=== PATIENT | female | born 1970 | race Caucasian/White ===

== ENCOUNTER → 2025-02-18 11:13 | Outpatient (BNVA) | payer MEDICARE, SELFPAY | PROVIDERS: Family Provider Nurse Practitioner; PCP Nurse Practitioner Family; Visit Provider Nurse Practitioner Family | DX: E11.9 Type 2 diabetes mellitus without complications (principal); I10 Essential (primary) hypertension; E55.9 Vitamin D deficiency, unspecified | CPT/HCPCS: 80053; 80061; 81000; 81003; 82043; 82306; 82607; 83036; 84443; 85025; 87086 ==

== ENCOUNTER → 2025-05-23 09:26 | Outpatient (BNVA) | payer MEDICARE, SELFPAY | PROVIDERS: Family Provider Nurse Practitioner; PCP Nurse Practitioner Family; Visit Provider Nurse Practitioner Family | DX: E11.9 Type 2 diabetes mellitus without complications (principal); N92.4 Excessive bleeding in the premenopausal period; I10 Essential (primary) hypertension; E55.9 Vitamin D deficiency, unspecified | CPT/HCPCS: 80053; 80061; 81025; 82306; 83036; 84443; 84702; 84703; 85025 ==

== ENCOUNTER → 2025-07-05 11:12 | Outpatient (BNVA) | payer MEDICARE, SELFPAY | PROVIDERS: PCP Nurse Practitioner Family; Visit Provider Nurse Practitioner Family | DX: M25.519 Pain in unspecified shoulder (principal) | CPT/HCPCS: 73030 ==